=== PATIENT | female | born 1985 ===

== ENCOUNTER 2025-06-06 08:00 | Outpatient (CLI) | payer OTHER ==
[~2025-06-06] VITALS: Ht 170.2 cm; Wt 55.8 kg
[2025-06-06] MEDS ORDERED: BUSPIRONE HCL10 MG PO (13:01)
[2025-06-06] MEDS ORDERED: PAXIL30 MG PO (13:01)
[2025-06-06 13:02] VITALS: BP 11/69
[2025-06-06 13:07] LABS: URINE APPEARANCE Clear; URINE BILIRRUBIN Negative (NEGATIVE); URINE BLOOD Negative; URINE COLOR Yellow; URINE GLUCOSE Negative (NEGATIVE); URINE KETONE Negative (NEGATIVE); URINE LEUKOCYTE Negative; URINE NITRATE Negative; URINE PROTEIN Negative (NEGATIVE); URINE UROBILINOGEN 0.2 E.U./dl
[2025-06-06 13:11] LABS: URINE BACTERIA 133.2 uL (0.0-1933); URINE EPITHELIAL CELLS 17.5 uL (0.0-38.8); URINE RBC 4.6 uL (0.0-20.8); URINE WBC 3.0 uL (0.0-23.2)
[2025-06-06 13:13] LABS: URINE CAST 0.00 uL (0.0-1.40)
[2025-06-06 13:14] LABS: BASO % 0.6 % (0.1-1.2); EOS # 0.21 (0.04-0.54); EOS % 3.0 % (0.7-7.0); LYMPH # 2.10 (1.18-3.74); LYMPH % 29.9 % (19.3-53.1); MEAN PLATELET VOLUME 9.60 fl (9.4-12.4); MONO # 0.26 (0.24-0.82); MONO % 3.7 % (4.7-12.5); NEUT # 4.39 (1.56-6.13); NEUT % 62.4 % (34.0-71.1); RED CELL DISTRIBUTION WIDTH 19.4 % (11.6-14.4)
[2025-06-06 13:32] LABS: INR 1.03
[2025-06-06 14:02] LABS: ALT/SGPT 15.0 U/L (12-78); AST/SGOT 20.0 U/L (15-37); BILIRUBIN TOTAL 0.55 mg/dL (0.3-1.2); BUN CREA RATIO 16.0 (7.0-25.0); CREATININE SERUM 0.62 mg/dL (0.55-1.02); GFR 107.16; GLOBULINA 3.4 G/DL (2.4-3.5); GLUCOSE FASTING 91.0 mg/dL (65-100); OSMOLALITY SERUM 276.0 MOSM/KG (275-295)
== END 2025-06-06 08:05 | disposition home or self-care (01) ==
LOC: RAD 08:00 → CIR.AMB 06-07 06:00 → EDSTATUS 06-07 07:45
PROVIDERS: ATTEND Orthopaedic Surgery Hand Surgery
DX: S62.512A Displaced fracture of proximal phalanx of left thumb, initial encounter for closed fracture (principal); E11.9 Type 2 diabetes mellitus without complications; E78.00 Pure hypercholesterolemia, unspecified; E78.3 Hyperchylomicronemia; D65 Disseminated intravascular coagulation [defibrination syndrome]; D66 Hereditary factor VIII deficiency; N39.0 Urinary tract infection, site not specified; Z01.810 Encounter for preprocedural cardiovascular examination; I10 Essential (primary) hypertension